=== PATIENT | female | born 1985 | race Caucasian/White ===

== ENCOUNTER 2017-08-24 12:51 | Inpatient (IN) | payer MEDICAID ==
[2017-08-24 14:06] LABS: ADD UMIC YES; UR ASCORBIC ACID NEGATIVE (NEGATIVE); UR BACTERIA FEW /HPF (NONE SEEN); UR BILIRUBIN (Dip) NEGATIVE (NEGATIVE); UR BLOOD (Dip) 1+ mg/dL (NEGATIVE); UR CLARITY CLEAR (CLEAR); UR COLOR STRAW (YELLOW); UR GLUCOSE (Dip) NEGATIVE (NEGATIVE); UR KETONES (Dip) NEGATIVE (NEGATIVE); UR LEUKOCYTE ESTERASE (Dip) NEGATIVE Leu/ul (NEGATIVE); UR NITRITE (Dip) NEGATIVE (NEGATIVE); UR RBC 0 /HPF (0-5); UR SPECIFIC GRAVITY (Dip) 1.003 (1.003-1.030); UR TOTAL PROTEIN (Dip) NEGATIVE (NEGATIVE); UR UROBILINOGEN (Dip) NEGATIVE (NEGATIVE); UR WBC 2 /HPF (0-5)
[2017-08-24 14:12] LABS: RUPTURE FETAL MEMBRANES POSITIVE (NEGATIVE)
[2017-08-24] MEDS ORDERED: LACTATED RINGER'S 1,000 ML IV (15:16)
[2017-08-24] MEDS ORDERED: OXYTOCIN 30 UNITS/LR 500 ML IV ×3 (15:30→18:00)
[2017-08-24] MEDS ORDERED: BUTORPHANOL 2 MG INJ IV (15:30)
[2017-08-24] MEDS ORDERED: MISOPROSTOL 200 MCG TAB PR (15:30)
[2017-08-24] MEDS ORDERED: CARBOPROST 250 MCG INJ IM (15:30)
[2017-08-24] MEDS ORDERED: LIDOCAINE 1% (MPF) 30 ML INJ INJ (15:30)
[2017-08-24] MEDS ORDERED: METHYLERGONOVINE 0.2 MG INJ IM (15:30)
[2017-08-24] MEDS: AMPICILLIN 2 GM/NS (PMX) 100 ML IV (15:30)
[2017-08-24 15:55] LABS: ADD MAN DIFF? NO
[2017-08-24 15:57] LABS: WHITE BLOOD COUNT 10.6 10^3/ul (4.8-10.8)
[2017-08-24 15:57] LABS: BASOPHILS % 0.3 % (0.0-2.0); EOSINOPHILS % 0.3 % (0.0-7.0); HEMATOCRIT 35.7 % (37.0-47.0); HEMOGLOBIN 12.7 g/dl (12.0-16.0); LYMPHOCYTES # 1.2 10^3/ul (0.8-2.9); LYMPHOCYTES % 11.1 % (15.0-51.0); MEAN CORPUSCULAR HEMOGLOBIN 34.7 pg (29.0-33.0); MEAN CORPUSCULAR HGB CONC 35.6 g/dl (32.0-37.0); MEAN CORPUSCULAR VOLUME 97.5 fl (82.0-101.0); MEAN PLATELET VOLUME 11.5 fl (7.4-10.4); MONOCYTE # 0.7 10^3/ul (0.3-0.9); MONOCYTES % 6.4 % (0.0-11.0); NEUTROPHIL # 8.6 10^3/ul (1.6-7.5); NEUTROPHILS % 81.1 % (39.0-77.0); PLATELET COUNT 231 10^3/UL (140-415); RED BLOOD COUNT 3.66 10^6/ul (4.20-5.40); RED CELL DISTRIBUTION WIDTH 12.8 % (11.5-14.5)
[2017-08-24 16:30] LABS: PROTIME 12.2 Sec (11.9-14.9)
[2017-08-24 16:31] LABS: PARTIAL THROMBOPLASTIN TIME 28.7 Sec (25.0-35.0)
[2017-08-24] MEDS ORDERED: OXYTOCIN 30 UNITS in LACTATED RINGER'S 497 ML IV (17:35)
[2017-08-24] MEDS ORDERED: AMPICILLIN 1 GM/NS (PMX) 50 ML IV (18:00)
[2017-08-24] MEDS: OXYTOCIN 30 UNITS/LR 500 ML IV ×2 (19:02→21:59)
[2017-08-24] MEDS: IBUPROFEN 600 MG TAB PO (20:09)
[2017-08-24] MEDS ORDERED: ACETAMINOPHEN 325 MG TAB PO (21:00)
[2017-08-24] MEDS ORDERED: HYDROCODONE/APAP (5/325) TAB PO (21:00)
[2017-08-24] MEDS ORDERED: OXYCODONE/ASPIRIN (4.88/325) TAB PO ×2 (21:00)
[2017-08-24] MEDS ORDERED: ONDANSETRON 4 MG INJ IV (21:00)
[2017-08-24] MEDS: SENNA/DOCUSATE NA (8.6MG/50MG) TAB PO (21:59)
[2017-08-25] MEDS: HYDROCODONE/APAP (5/325) TAB PO (01:05)
[2017-08-25] MEDS: IBUPROFEN 600 MG TAB PO ×5 (05:51→23:33)
[2017-08-25] MEDS: SENNA/DOCUSATE NA (8.6MG/50MG) TAB PO ×2 (08:46→21:23)
[2017-08-25] MEDS: DIBUCAINE 1% 30 GM OINT PR (08:46)
[2017-08-25] MEDS: WITCH HAZEL/GLYCERIN PAD PR (08:46)
[2017-08-25] MEDS: LANOLIN 7 GM TUBE TOP (08:46)
[2017-08-25] MEDS: BENZOCAINE 20% 56 ML SPRAY TOP (08:46)
[2017-08-25 10:59] LABS: ADD MAN DIFF? NO
[2017-08-25 11:08] LABS: WHITE BLOOD COUNT 11.9 10^3/ul (4.8-10.8)
[2017-08-25 11:08] LABS: BASOPHILS % 0.3 % (0.0-2.0); EOSINOPHILS # 0.1 10^3/ul (0.0-0.5); EOSINOPHILS % 0.5 % (0.0-7.0); HEMATOCRIT 36.2 % (37.0-47.0); HEMOGLOBIN 12.8 g/dl (12.0-16.0); LYMPHOCYTES # 1.3 10^3/ul (0.8-2.9); LYMPHOCYTES % 11.1 % (15.0-51.0); MEAN CORPUSCULAR HEMOGLOBIN 34.9 pg (29.0-33.0); MEAN CORPUSCULAR HGB CONC 35.4 g/dl (32.0-37.0); MEAN CORPUSCULAR VOLUME 98.6 fl (82.0-101.0); MEAN PLATELET VOLUME 12.3 fl (7.4-10.4); MONOCYTES % 8.5 % (0.0-11.0); NEUTROPHIL # 9.4 10^3/ul (1.6-7.5); NEUTROPHILS % 78.8 % (39.0-77.0); PLATELET COUNT 241 10^3/UL (140-415); RED BLOOD COUNT 3.67 10^6/ul (4.20-5.40)
[2017-08-25 22:35] LABS: RAPID PLASMA REAGIN NONREACTIVE (NR)
[2017-08-26] MEDS: IBUPROFEN 600 MG TAB PO ×2 (05:36→11:37)
[2017-08-26] MEDS: MEASLES,MUMPS,RUBELLA VACCINE INJ SC* (09:27)
[2017-08-26] MEDS: SENNA/DOCUSATE NA (8.6MG/50MG) TAB PO (09:27)
== END 2017-08-26 14:05 | disposition home or self-care (01) | DRG 775 ==
LOC: OBT 12:51 → L-D 12:54 → OBT 13:51 → L-D 13:45 → PP1 20:38
PROC: 10E0XZZ Delivery of Products of Conception, External Approach (ICD-10-PCS; principal; 2017-08-24)
DX: O80 Encounter for full-term uncomplicated delivery (principal); Z37.0 Single live birth; Z3A.38 38 weeks gestation of pregnancy
CPT/HCPCS: 81001; 84112; 85025; 85610; 85730; 86592; 86900; 86901; 93970

== ENCOUNTER 2017-09-05 17:00 | Emergency (ER) | payer MEDICAID ==
[2017-09-05] MEDS: SOD CHLORIDE 0.9% 1,000 ML IV ×2 (18:16→18:57)
[2017-09-05 18:22] LABS: ADD MAN DIFF? NO
[2017-09-05 18:25] LABS: WHITE BLOOD COUNT 8.8 10^3/ul (4.8-10.8)
[2017-09-05 18:25] LABS: BASOPHILS % 0.2 % (0.0-2.0); HEMATOCRIT 48.4 % (37.0-47.0); HEMOGLOBIN 16.8 g/dl (12.0-16.0); LYMPHOCYTES # 0.8 10^3/ul (0.8-2.9); MEAN CORPUSCULAR HEMOGLOBIN 33.3 pg (29.0-33.0); MEAN CORPUSCULAR HGB CONC 34.7 g/dl (32.0-37.0); MEAN PLATELET VOLUME 11.6 fl (7.4-10.4); MONOCYTE # 0.5 10^3/ul (0.3-0.9); MONOCYTES % 5.6 % (0.0-11.0); NEUTROPHIL # 7.5 10^3/ul (1.6-7.5); NEUTROPHILS % 84.7 % (39.0-77.0); PLATELET COUNT 265 10^3/UL (140-415); RED BLOOD COUNT 5.04 10^6/ul (4.20-5.40); RED CELL DISTRIBUTION WIDTH 11.8 % (11.5-14.5)
[2017-09-05 18:43] LABS: ADD UMIC YES; UR ASCORBIC ACID NEGATIVE (NEGATIVE); UR BILIRUBIN (Dip) NEGATIVE (NEGATIVE); UR BLOOD (Dip) 3+ mg/dL (NEGATIVE); UR CLARITY CLOUDY (CLEAR); UR COLOR YELLOW (YELLOW); UR GLUCOSE (Dip) NEGATIVE (NEGATIVE); UR KETONES (Dip) NEGATIVE (NEGATIVE); UR LEUKOCYTE ESTERASE (Dip) 3+ Leu/ul (NEGATIVE); UR NITRITE (Dip) NEGATIVE (NEGATIVE); UR RBC 88 /HPF (0-5); UR SPECIFIC GRAVITY (Dip) 1.016 (1.003-1.030); UR SQUAMOUS EPITHELIAL CELL FEW /HPF (FEW); UR TOTAL PROTEIN (Dip) 1+ mg/dl (NEGATIVE); UR TRANSITIONAL EPI CELL FEW /HPF (NONE SEEN); UR UROBILINOGEN (Dip) 1+ mg/dL (NEGATIVE); UR WBC 127 /HPF (0-5)
[2017-09-05 18:48] LABS: ALANINE AMINOTRANSFERASE 96 IU/L (13-69); ALBUMIN 4.7 g/dl (3.3-4.9); ALKALINE PHOSPHATASE 141 IU/L (42-121); ANION GAP 19 (8-16); ASPARTATE AMINO TRANSFERASE 126 IU/L (15-46); BILIRUBIN,INDIRECT 0.6 mg/dl (0-1.1); BILIRUBIN,TOTAL 0.6 mg/dl (0.2-1.3); BLOOD UREA NITROGEN 9 mg/dl (7-20); CARBON DIOXIDE 26 mmol/L (21-31); CHLORIDE 99 mmol/L (97-110); CREATININE 0.66 mg/dl (0.44-1.00); GLUCOSE 110 mg/dl (70-220); POTASSIUM 3.9 mmol/L (3.5-5.1); SODIUM 140 mmol/L (135-144); TOTAL PROTEIN 8.6 g/dl (6.1-8.1)
[2017-09-05] MEDS: SOD CHLORIDE 0.9% 500 ML IV (18:57)
[2017-09-05] MEDS: IBUPROFEN 800 MG TAB PO (18:57)
[2017-09-05] MEDS: ACETAMINOPHEN 500 MG TAB PO ×2 (18:57→19:24)
[2017-09-05 19:08] LABS: LACTIC ACID 1.6 mmol/L (0.5-2.0)
[2017-09-05] MEDS ORDERED: PIPER-TAZO 3.375 GM IV (PMX) 100 ML IVPB (19:10)
[2017-09-05] MEDS ORDERED: PIPER-TAZO 3.375 GM IV (PMX) 50 ML (19:16)
[2017-09-05] MEDS: PIPER-TAZO 3.375 GM IV (PMX) 50 ML IVPB (19:25)
[2017-09-05] MEDS ORDERED: ONDANSETRON 4 MG INJ IV (20:30)
[2017-09-05] MEDS: morphine 2 MG INJ IV (22:19)
[2017-09-06] MEDS ORDERED: PIPER-TAZO 3.375 GM IV (PMX) 50 ML IV (02:00)
[2017-09-06] MEDS ORDERED: PIPER-TAZO 3.375 GM IV (PMX) 100 ML IVPB (02:00)
[2017-09-06] MEDS: PIPER-TAZO 3.375 GM IV (PMX) 100 ML IVPB ×3 (03:11→11:55)
[2017-09-06] MEDS: ACETAMINOPHEN 325 MG TAB PO (10:35)
[2017-09-06 11:11] LABS: ADD MAN DIFF? NO
[2017-09-06 11:31] LABS: ALANINE AMINOTRANSFERASE 89 IU/L (13-69); ALBUMIN 3.4 g/dl (3.3-4.9); ALKALINE PHOSPHATASE 101 IU/L (42-121); ASPARTATE AMINO TRANSFERASE 91 IU/L (15-46); BILIRUBIN,INDIRECT 0.5 mg/dl (0-1.1); BILIRUBIN,TOTAL 0.5 mg/dl (0.2-1.3); TOTAL PROTEIN 6.5 g/dl (6.1-8.1)
[2017-09-06 11:33] LABS: ABNORMAL IP MESSAGE 1; BASOPHILS % 0.1 % (0.0-2.0); HEMATOCRIT 41.5 % (37.0-47.0); LYMPHOCYTES # 0.4 10^3/ul (0.8-2.9); LYMPHOCYTES % 6.3 % (15.0-51.0); MEAN CORPUSCULAR HEMOGLOBIN 33.7 pg (29.0-33.0); MEAN CORPUSCULAR HGB CONC 33.7 g/dl (32.0-37.0); MEAN PLATELET VOLUME 12.1 fl (7.4-10.4); MONOCYTE # 0.3 10^3/ul (0.3-0.9); MONOCYTES % 4.4 % (0.0-11.0); NEUTROPHIL # 6.1 10^3/ul (1.6-7.5); NEUTROPHILS % 88.3 % (39.0-77.0); PLATELET COUNT 190 10^3/UL (140-415); RED BLOOD COUNT 4.15 10^6/ul (4.20-5.40); RED CELL DISTRIBUTION WIDTH 12.2 % (11.5-14.5)
[2017-09-06 11:33] LABS: WHITE BLOOD COUNT 6.9 10^3/ul (4.8-10.8)
[2017-09-06 11:35] LABS: POSITIVE DIFF @See below
[2017-09-06 14:35] LABS: HEPATITIS B SURFACE ANTIGEN NEGATIVE (NEGATIVE)
[2017-09-06 14:54] LABS: HEPATITIS C VIRAL ANTIBODY NEGATIVE (NEGATIVE)
== END 2017-09-06 14:31 | disposition home or self-care (01) ==
LOC: E/R 09-06 14:31 → FTE 17:00
DX: A41.9 Sepsis, unspecified organism (principal); N39.0 Urinary tract infection, site not specified; R51 Headache; R10.2 Pelvic and perineal pain
CPT/HCPCS: 36415; 76856; 80053; 80076; 81001; 83605; 85025; 86708; 86803; 87040; 87086; 87340; 87400; 93005; 96374; 96376; 99291-25